=== PATIENT | male | born 1990 | race Hispanic/Latino ===

== ENCOUNTER 2023-03-20 16:19 | Emergency (ER) | payer SELFPAY ==
[~2023-03-20] VITALS: Ht 177.8 cm; Wt 106.6 kg
[2023-03-20 16:19] VITALS: BP 165/123; PULSE 113; RESP 18; TEMP 98.5; O2SAT 96
[2023-03-20 16:50] LABS: BASOPHIL # 0.1 10^3/uL (0.0-0.1); BASOPHIL % 0.5 % (0.0-0.2); EOSINOPHIL # 0.1 10^3/uL (0.0-0.2); EOSINOPHIL % 0.9 % (0.0-5.0); HEMATOCRIT(ML) 47.1 % (37.0-53.0); LYMPHOCYTES # 3.09 10^3/uL1 (1.0-4.8); LYMPHOCYTES % 28.3 % (24.0-44.0); MEAN CORP HGB 32.8 pg (26-34); MEAN CORP HGB CONCENTRATION 36.1 g/dL (33-36.5); MEAN CORP VOLUME 90.9 fL (78-100); MONOCYTES # 0.9 10^3/uL (0.3-0.8); MONOCYTES % 8.6 % (5.0-12.0); NEUTROPHIL # 6.6 10^3/uL (1.8-7.7); NEUTROPHILS % 60.7 % (41.0-85.0); PLATELET COUNT 306 10^3/uL (150-400); RED BLOOD CELL 5.18 10^6/uL (4.50-5.90); RED CELL DISTRIBUTION WIDTH 11.7 % (11.5-14.5); WHITE BLOOD CELL 10.9 10^3/uL (4.5-11.0)
[2023-03-20 16:57] LABS: +ADD MANUAL DIFF(NO CHRG) NO
[2023-03-20 17:04] LABS: INR 1.1
[2023-03-20 17:14] LABS: ALBUMIN(ML) 3.5 g/dL (3.4-5.0); ALBUMIN/GLOBULIN RATIO 0.686; ANION GAP 14.6; BUN/CREATININE RATIO 10.52 (10.0-20.0); CREATININE SERUM 0.95 mg/dL (0.59-1.40); EST GFR, NON-AA 91.9 (>/=60); POTASSIUM 3.6 mmol/L (3.6-5.2)
[2023-03-20 17:34] LABS: BILIRUBIN,URINE NEGATIVE (NEGATIVE); LEUKOCYTE ESTERASE ,URINE TRACE (NEGATIVE); NITRATE,URINE NEGATIVE (NEGATIVE); PH,URINE 6.5 (4.5-8.0)
[2023-03-20 17:46] LABS: UAMPH METHAMP(SCRN) NEGATIVE (co1000ng/mL); UR MDMA (ECSTASY) SCRN NEGATIVE (c/o300ng/mL); UR METHADONE SCRN NEGATIVE (c/o300ng/mL); UR OPIATE SCRN NEGATIVE (c/o300ng/mL); UR PHENCYCLIDINE (PCP) SCRN NEGATIVE (c/o 25ng/mL); UR TETRAHYDROCANNABINOL SCRN NEGATIVE (c/o 50ng/mL)
[2023-03-20 17:47] LABS: APPEARANCE,URINE CLEAR; UA COLOR YELLOW
[2023-03-20 18:07] VITALS: BP 142/96; PULSE 94; RESP 18; TEMP 98.5; O2SAT 96
== END 2023-03-20 18:17 | disposition short-term general hospital (02) ==
LOC: ER 16:19
DX: G93.40 Encephalopathy, unspecified (principal)
CPT/HCPCS: 36415; 70450; 80053; 80307; 81001; 82077; 85025; 85610; 85730; 93005; 99285